=== PATIENT | male | born 1960 | race African-American/Black ===

== ENCOUNTER 2019-07-14 13:14 | Inpatient (IN) | payer MEDICAID ==
[~2019-07-14] VITALS: Ht 170.2 cm; Wt 57.2 kg
[~2019-07-14 13:14] MED LIST: LIDOCAINE HCL/PF 1% 2ML VIAL ONE
[2019-07-14] MEDS ORDERED: MORPHINE SULFATE 4 MG/ML CPJ (NOT FOR IM USE) IV STA (13:45)
[2019-07-14] MEDS ORDERED: SODIUM CHLORIDE 0.9% 1,000 ML IV ONE (13:45)
[2019-07-14] MEDS ORDERED: ONDANSETRON HCL 4MG/2ML INJ IV STA (13:45)
[2019-07-14 15:25] LABS: CLARITY URINE CLEAR (CLEAR); COLOR URINE YELLOW (YELLOW); KETONES URINE 2+ (NEGATIVE); LEUKOCYTE ESTERASE URINE NEGATIVE (NEGATIVE); NITRITE URINE NEGATIVE (NEGATIVE); OCCULT BLOOD URINE 1+ (NEGATIVE); PROTEIN URINE TRACE (NEGATIVE); SPECIFIC GRAVITY URINE 1.029 (1.005-1.030); UROBILINOGEN URINE 0.2 E.U./dL (0.2-1.0)
[2019-07-14 15:26] LABS: BASOPHILS % 0.8 % (0.0-2.0); EOSINOPHILS % 0.8 % (0.0-5.0); HEMATOCRIT. 36.9 % (42.0-52.0); HEMOGLOBIN. 12.7 g/dL (14.0-18.0); LYMPHOCYTES % 24.3 % (20.0-50.0); MEAN CORPUSCULAR HEMOGLOBIN 30.4 pg (28.0-32.0); MEAN CORPUSCULAR VOLUME 88.6 fL (80.0-94.0); MONOCYTES % 5.2 % (2.0-8.0); NEUTROPHILS % 68.9 % (40.0-76.0); PLATELET 159 x1000/uL (130-400); RED BLOOD CELL COUNT 4.16 mill/uL (4.7-6.1); RED CELL DISTRIBUTION WIDTH 13.1 % (11.6-14.6)
[2019-07-14 15:32] LABS: CHLORIDE 94 mEq/L (98-107); INR 0.9; PROTHROMBIN TIME 9.8 sec (9.6-11.0)
[2019-07-14 15:42] LABS: BETA HYDROXYBUTYRATE 3.4 mMol/L (0.0-0.3)
[2019-07-14] MEDS ORDERED: INSULIN REGULAR (HUMULIN R) UD 100 UNITS/ML SYR IV ONE (16:00)
[2019-07-14 16:20] LABS: BG BASE EXCESS -3.3 mmol/L (-2.0-2.0); BG CARBOXYHEMOGLOBIN 0.2 % (0.5-1.5); BG DEOXYHEMOGLOBIN 3.1 % (0.0-5.0); BG FRACTION INSPIRED OXYGEN 21; BG HCO3 ACT 21.5 mmol/L (22.0-26.0); BG METHEMOGLOBIN 0.2 % (0.0-1.5); BG OXYGEN SATURATION 96.9 % (92.0-98.5); BG OXYHEMOGLOBIN 96.5 % (94.0-97.0); BG PCO2 37.6 mmHg (35.0-45.0); BG PH 7.375 (7.350-7.450); BG PO2 95.3 mmHg (75.0-100.0); BG SAMPLE SITE RIGHT RADIAL; BG TOTAL HEMOGLOBIN 12.2 g/dL (12.0-18.0); BG VENT MODE ROOM AIR
[2019-07-14] MEDS ORDERED: INSULIN REGULAR (HUMULIN R) 300UNITS/3ML IV ONE (16:30)
[2019-07-14] MEDS: MORPHINE SULFATE 2 MG/ML CPJ (NOT FOR IM USE) IV PRN (19:49)
[2019-07-14] MEDS ORDERED: BLOOD SUGAR DIAGNOSTIC STRIP TEST SCH (21:00)
[2019-07-14] MEDS ORDERED: DEXTROSE 50% WATER 50ML SYRINGE IV PRN ×2 (21:30→22:15)
[2019-07-14 22:00] VITALS: BP 131/73
[2019-07-14] MEDS: INSULIN LISPRO 100 UNITS/ML SUBCUT SCH (22:15)
[2019-07-14] MEDS: BLOOD SUGAR DIAGNOSTIC STRIP TEST SCH (22:49)
[2019-07-14] MEDS: PHENYTOIN SODIUM EXTENDED 100MG CAPSULE PO SCH (22:49)
[2019-07-14] MEDS: ATORVASTATIN CALCIUM 40MG TABLET PO SCH (22:49)
[2019-07-15] VITALS (16 sets, daily range): BP systolic 94–136; BP diastolic 48–110
[2019-07-15] MEDS: MORPHINE SULFATE 2 MG/ML CPJ (NOT FOR IM USE) IV PRN ×5 (00:45→20:21)
[2019-07-15] MEDS: NITROGLYCERIN OINT 1GM/INCH UDPKT TD SCH ×3 (06:03→21:35)
[2019-07-15] MEDS: BLOOD SUGAR DIAGNOSTIC STRIP TEST SCH ×4 (07:30→20:23)
[2019-07-15] MEDS ORDERED: BLOOD SUGAR DIAGNOSTIC STRIP TEST SCH (07:30)
[2019-07-15] MEDS ORDERED: INSULIN LISPRO 100 UNITS/ML SUBCUT SCH (08:00)
[2019-07-15] MEDS: METOPROLOL TARTRATE 50MG TABLET PO SCH ×2 (08:38→20:35)
[2019-07-15] MEDS: PHENOBARBITAL 30 MG TABLET PO SCH ×2 (08:39→17:12)
[2019-07-15] MEDS: INSULIN LISPRO 100 UNITS/ML SUBCUT SCH ×4 (08:46→20:23)
[2019-07-15] MEDS ORDERED: ASPIRIN 325MG TABLET PO SCH (09:00)
[2019-07-15] MEDS: DOCUSATE SODIUM 250MG CAPSULE PO SCH (09:15)
[2019-07-15] MEDS: TAMSULOSIN HCL 0.4MG SR CAPSULE PO SCH (10:54)
[2019-07-15] MEDS: INSULIN GLARGINE UD 100 UNITS/ML SYR SUBCUT SCH ×2 (10:55→21:28)
[2019-07-15 11:56] LABS: *BARBITURATES SCREEN URINE NEGATIVE (NEGATIVE); CANNABINOID URINE SCREEN NEGATIVE (NEGATIVE); OPIATES URINE SCREEN PRESUMTIVE POSITIVE (NEGATIVE); PHENCYCLIDINE URINE SCREEN NEGATIVE (NEGATIVE)
[2019-07-15 11:57] LABS: *AMPHETAMINES SCREEN URINE NEGATIVE (NEGATIVE); *BENZODIAZEPINES SCREEN URINE NEGATIVE (NEGATIVE); *COCAINE SCREEN URINE PRESUMTIVE POSITIVE (NEGATIVE); METHADONE URINE SCREEN NEGATIVE (NEGATIVE)
[2019-07-15] MEDS: HYDROCODONE/ACETAMINOPHEN 10/325MG TABLET PO PRN ×2 (15:24→20:22)
[2019-07-15 16:08] LABS: CHLORIDE 102 mEq/L (98-107)
[2019-07-15 16:16] LABS: LDL CHOLESTEROL 69 mg/dL (5-100)
[2019-07-15 16:18] LABS: HDL CHOLESTEROL 53 mg/dL (40-59)
[2019-07-15] MEDS: PHENYTOIN SODIUM EXTENDED 100MG CAPSULE PO SCH (20:22)
[2019-07-15] MEDS: ATORVASTATIN CALCIUM 40MG TABLET PO SCH (20:31)
[2019-07-16] VITALS (12 sets, daily range): BP systolic 84–144; BP diastolic 28–88
[2019-07-16] MEDS: HYDROCODONE/ACETAMINOPHEN 10/325MG TABLET PO PRN ×6 (00:37→22:31)
[2019-07-16] MEDS: MORPHINE SULFATE 2 MG/ML CPJ (NOT FOR IM USE) IV PRN ×3 (00:38→08:32)
[2019-07-16] MEDS: DOCUSATE SODIUM 250MG CAPSULE PO SCH ×2 (00:41→08:28)
[2019-07-16] MEDS: BLOOD SUGAR DIAGNOSTIC STRIP TEST SCH ×4 (08:18→20:57)
[2019-07-16] MEDS: PHENOBARBITAL 30 MG TABLET PO SCH ×2 (08:28→17:43)
[2019-07-16] MEDS: TAMSULOSIN HCL 0.4MG SR CAPSULE PO SCH (08:29)
[2019-07-16] MEDS: CLOPIDOGREL 75MG TABLET PO SCH (08:29)
[2019-07-16] MEDS: METOPROLOL TARTRATE 50MG TABLET PO SCH ×2 (08:30→20:58)
[2019-07-16] MEDS: ASPIRIN 81MG TABLET PO SCH (08:30)
[2019-07-16] MEDS: INSULIN LISPRO 100 UNITS/ML SUBCUT SCH ×4 (08:31→21:00)
[2019-07-16] MEDS: INSULIN GLARGINE UD 100 UNITS/ML SYR SUBCUT SCH ×2 (10:52→21:00)
[2019-07-16] MEDS: NITROGLYCERIN OINT 1GM/INCH UDPKT TD SCH ×2 (14:00→20:57)
[2019-07-16] MEDS: PHENYTOIN SODIUM EXTENDED 100MG CAPSULE PO SCH (20:56)
[2019-07-16] MEDS: ATORVASTATIN CALCIUM 40MG TABLET PO SCH (20:58)
[2019-07-17] VITALS (13 sets, daily range): BP systolic 90–127; BP diastolic 50–74
[2019-07-17] MEDS: HYDROCODONE/ACETAMINOPHEN 10/325MG TABLET PO PRN ×5 (02:38→20:09)
[2019-07-17] MEDS: BLOOD SUGAR DIAGNOSTIC STRIP TEST SCH ×4 (06:13→20:09)
[2019-07-17] MEDS: NITROGLYCERIN OINT 1GM/INCH UDPKT TD SCH ×3 (06:33→21:44)
[2019-07-17] MEDS: ASPIRIN 81MG TABLET PO SCH (08:32)
[2019-07-17] MEDS: METOPROLOL TARTRATE 50MG TABLET PO SCH ×2 (08:32→20:11)
[2019-07-17] MEDS: DOCUSATE SODIUM 250MG CAPSULE PO SCH (08:32)
[2019-07-17] MEDS: CLOPIDOGREL 75MG TABLET PO SCH (08:32)
[2019-07-17] MEDS: PHENOBARBITAL 30 MG TABLET PO SCH ×2 (08:33→17:27)
[2019-07-17] MEDS: TAMSULOSIN HCL 0.4MG SR CAPSULE PO SCH (08:33)
[2019-07-17] MEDS: INSULIN LISPRO 100 UNITS/ML SUBCUT SCH ×4 (08:34→20:16)
[2019-07-17] MEDS: INSULIN GLARGINE UD 100 UNITS/ML SYR SUBCUT SCH ×3 (10:00→21:44)
[2019-07-17] MEDS: PHENYTOIN SODIUM EXTENDED 100MG CAPSULE PO SCH (20:06)
[2019-07-17] MEDS: ATORVASTATIN CALCIUM 40MG TABLET PO SCH (20:09)
[2019-07-18] MEDS: HYDROCODONE/ACETAMINOPHEN 10/325MG TABLET PO PRN ×4 (01:42→17:46)
[2019-07-18 03:36] VITALS: BP 112/50
[2019-07-18] MEDS: GABAPENTIN 300MG CAPSULE PO SCH ×3 (05:33→21:39)
[2019-07-18] MEDS: INSULIN LISPRO 100 UNITS/ML SUBCUT SCH ×4 (05:34→21:00)
[2019-07-18] MEDS: BLOOD SUGAR DIAGNOSTIC STRIP TEST SCH ×4 (05:34→21:39)
[2019-07-18] MEDS: NITROGLYCERIN OINT 1GM/INCH UDPKT TD SCH ×3 (05:34→21:39)
[2019-07-18 08:00] VITALS: BP 101/54
[2019-07-18] MEDS: TAMSULOSIN HCL 0.4MG SR CAPSULE PO SCH (09:24)
[2019-07-18] MEDS: DOCUSATE SODIUM 250MG CAPSULE PO SCH (09:25)
[2019-07-18] MEDS: ASPIRIN 81MG TABLET PO SCH (09:25)
[2019-07-18] MEDS: PHENOBARBITAL 30 MG TABLET PO SCH ×2 (09:25→21:38)
[2019-07-18] MEDS: INSULIN GLARGINE UD 100 UNITS/ML SYR SUBCUT SCH ×2 (09:26→21:52)
[2019-07-18] MEDS: METOPROLOL TARTRATE 50MG TABLET PO SCH ×2 (09:33→21:38)
[2019-07-18] MEDS: CLOPIDOGREL 75MG TABLET PO SCH (09:33)
[2019-07-18 12:00] VITALS: BP 89/52
[2019-07-18 12:29] VITALS: BP 105/59
[2019-07-18 16:00] VITALS: BP 124/65
[2019-07-18 20:00] VITALS: BP 112/62
[2019-07-18] MEDS: PHENYTOIN SODIUM EXTENDED 100MG CAPSULE PO SCH (21:38)
[2019-07-18] MEDS: ATORVASTATIN CALCIUM 40MG TABLET PO SCH (21:38)
[2019-07-18] MEDS ORDERED: GABAPENTIN 300MG CAPSULE PO SCH (22:00)
[2019-07-19] VITALS: BP 106/44
[2019-07-19 04:00] VITALS: BP 118/70
[2019-07-19] MEDS: NITROGLYCERIN OINT 1GM/INCH UDPKT TD SCH ×3 (05:33→21:40)
[2019-07-19] MEDS: GABAPENTIN 300MG CAPSULE PO SCH ×3 (05:34→21:39)
[2019-07-19] MEDS: BLOOD SUGAR DIAGNOSTIC STRIP TEST SCH ×4 (06:26→21:39)
[2019-07-19 08:00] VITALS: BP 107/50
[2019-07-19] MEDS: METOPROLOL TARTRATE 50MG TABLET PO SCH ×2 (09:00→21:00)
[2019-07-19] MEDS: PHENOBARBITAL 30 MG TABLET PO SCH ×2 (09:00→17:49)
[2019-07-19] MEDS: DOCUSATE SODIUM 250MG CAPSULE PO SCH (09:03)
[2019-07-19] MEDS: CLOPIDOGREL 75MG TABLET PO SCH (09:03)
[2019-07-19] MEDS: ASPIRIN 81MG TABLET PO SCH (09:03)
[2019-07-19] MEDS: TAMSULOSIN HCL 0.4MG SR CAPSULE PO SCH (09:04)
[2019-07-19] MEDS: INSULIN LISPRO 100 UNITS/ML SUBCUT SCH ×4 (09:08→21:56)
[2019-07-19] MEDS: HYDROCODONE/ACETAMINOPHEN 10/325MG TABLET PO PRN ×2 (09:13→17:51)
[2019-07-19] MEDS: INSULIN GLARGINE UD 100 UNITS/ML SYR SUBCUT SCH ×2 (11:00→23:07)
[2019-07-19 11:02] LABS: CHLORIDE 108 mEq/L (98-107)
[2019-07-19 11:06] LABS: BASOPHILS % 0.3 % (0.0-2.0); EOSINOPHILS % 0.9 % (0.0-5.0); HEMOGLOBIN. 11.3 g/dL (14.0-18.0); LYMPHOCYTES % 24.4 % (20.0-50.0); MEAN CORPUSCULAR HEMOGLOBIN 30.5 pg (28.0-32.0); MEAN CORPUSCULAR VOLUME 88.8 fL (80.0-94.0); MEAN PLATELET VOLUME 9.3 fl (7.4-10.4); MONOCYTES % 6.3 % (2.0-8.0); NEUTROPHILS % 68.1 % (40.0-76.0); PLATELET 156 x1000/uL (130-400); RED BLOOD CELL COUNT 3.71 mill/uL (4.7-6.1); RED CELL DISTRIBUTION WIDTH 13.2 % (11.6-14.6)
[2019-07-19 12:00] VITALS: BP 100/44
[2019-07-19 16:00] VITALS: BP 127/58
[2019-07-19 20:00] VITALS: BP 99/61
[2019-07-19] MEDS: PHENYTOIN SODIUM EXTENDED 100MG CAPSULE PO SCH (21:39)
[2019-07-19] MEDS: ATORVASTATIN CALCIUM 40MG TABLET PO SCH (21:39)
[2019-07-20] VITALS: BP 126/71
[2019-07-20 04:00] VITALS: BP 109/61
[2019-07-20] MEDS: GABAPENTIN 300MG CAPSULE PO SCH ×3 (06:01→21:30)
[2019-07-20] MEDS: NITROGLYCERIN OINT 1GM/INCH UDPKT TD SCH ×3 (06:04→21:09)
[2019-07-20] MEDS: BLOOD SUGAR DIAGNOSTIC STRIP TEST SCH ×4 (06:32→21:09)
[2019-07-20] MEDS: HYDROCODONE/ACETAMINOPHEN 10/325MG TABLET PO PRN ×4 (06:32→20:27)
[2019-07-20] MEDS: METOPROLOL TARTRATE 50MG TABLET PO SCH ×2 (09:00→20:26)
[2019-07-20] MEDS: TAMSULOSIN HCL 0.4MG SR CAPSULE PO SCH (09:02)
[2019-07-20] MEDS: ASPIRIN 81MG TABLET PO SCH (09:03)
[2019-07-20] MEDS: DOCUSATE SODIUM 250MG CAPSULE PO SCH (09:05)
[2019-07-20] MEDS: PHENOBARBITAL 30 MG TABLET PO SCH (09:05)
[2019-07-20] MEDS: CLOPIDOGREL 75MG TABLET PO SCH (09:05)
[2019-07-20] MEDS: INSULIN LISPRO 100 UNITS/ML SUBCUT SCH ×4 (09:07→21:14)
[2019-07-20] MEDS: INSULIN GLARGINE UD 100 UNITS/ML SYR SUBCUT SCH (10:49)
[2019-07-20] MEDS ORDERED: GLUCAGON,HUMAN RECOMBINANT 1MG/VIAL IM SCH (13:20)
[2019-07-20] MEDS ORDERED: DEXTROSE 50% WATER 50ML SYRINGE IV SCH (13:30)
[2019-07-20] MEDS ORDERED: LIDOCAINE HCL 1% 20ML VIAL (Pyxis) INJ ONE (13:38)
[2019-07-20] MEDS ORDERED: SODIUM BICARBONATE 4% (2.4MEQ) 5ML VIAL IV ONE (13:38)
[2019-07-20] MEDS ORDERED: NITROGLYCERIN 0.4MG TABLET SL SL SCH (13:45)
[2019-07-20] MEDS: LEVETIRACETAM 500 MG in SODIUM CHLORIDE 0.9% 100 ML IV SCH ×2 (14:32→20:25)
[2019-07-20] MEDS: ENOXAPARIN 40MG/0.4ML SYR SUBCUT SCH (14:37)
[2019-07-20 20:00] VITALS: BP 115/58
[2019-07-20] MEDS: ATORVASTATIN CALCIUM 40MG TABLET PO SCH (20:26)
[2019-07-20] MEDS: PHENYTOIN SODIUM EXTENDED 100MG CAPSULE PO SCH (20:26)
[2019-07-20] MEDS ORDERED: INSULIN GLARGINE UD 100 UNITS/ML SYR SUBCUT SCH (22:00)
[2019-07-20] MEDS ORDERED: INSULIN LISPRO 100 UNITS/ML SUBCUT NR (22:30)
[2019-07-21] VITALS: BP 103/54
[2019-07-21] MEDS: HYDROCODONE/ACETAMINOPHEN 10/325MG TABLET PO PRN ×4 (00:46→19:55)
[2019-07-21 04:00] VITALS: BP 96/52
[2019-07-21 05:56] VITALS: BP 121/66
[2019-07-21] MEDS: GABAPENTIN 300MG CAPSULE PO SCH ×3 (05:57→21:02)
[2019-07-21] MEDS: NITROGLYCERIN OINT 1GM/INCH UDPKT TD SCH ×2 (05:57→14:54)
[2019-07-21] MEDS: INSULIN LISPRO 100 UNITS/ML SUBCUT SCH ×4 (07:50→21:05)
[2019-07-21] MEDS: BLOOD SUGAR DIAGNOSTIC STRIP TEST SCH ×4 (08:09→20:18)
[2019-07-21] MEDS: METOPROLOL TARTRATE 50MG TABLET PO SCH ×2 (09:00→20:03)
[2019-07-21] MEDS: ASPIRIN 81MG TABLET PO SCH (09:51)
[2019-07-21] MEDS: DOCUSATE SODIUM 250MG CAPSULE PO SCH (09:52)
[2019-07-21] MEDS: TAMSULOSIN HCL 0.4MG SR CAPSULE PO SCH (09:52)
[2019-07-21] MEDS: CLOPIDOGREL 75MG TABLET PO SCH (09:52)
[2019-07-21] MEDS ORDERED: INSULIN GLARGINE UD 100 UNITS/ML SYR SUBCUT SCH (10:00)
[2019-07-21] MEDS: LEVETIRACETAM 500 MG in SODIUM CHLORIDE 0.9% 100 ML IV SCH ×2 (10:03→20:01)
[2019-07-21] MEDS: ENOXAPARIN 40MG/0.4ML SYR SUBCUT SCH (14:53)
[2019-07-21 20:00] VITALS: BP 116/51
[2019-07-21] MEDS: PHENYTOIN SODIUM EXTENDED 100MG CAPSULE PO SCH (20:02)
[2019-07-21] MEDS: ATORVASTATIN CALCIUM 40MG TABLET PO SCH (20:03)
[2019-07-21] MEDS: QUETIAPINE FUMARATE 50MG TABLET PO SCH (21:02)
[2019-07-22] VITALS: BP 112/59
[2019-07-22] MEDS: HYDROCODONE/ACETAMINOPHEN 10/325MG TABLET PO PRN ×4 (02:02→17:40)
[2019-07-22 04:00] VITALS: BP 98/51
[2019-07-22] MEDS: GABAPENTIN 300MG CAPSULE PO SCH ×3 (05:53→21:30)
[2019-07-22] MEDS: NITROGLYCERIN OINT 1GM/INCH UDPKT TD SCH ×3 (05:55→21:30)
[2019-07-22] MEDS: BLOOD SUGAR DIAGNOSTIC STRIP TEST SCH ×4 (06:22→20:25)
[2019-07-22] MEDS: INSULIN LISPRO 100 UNITS/ML SUBCUT SCH ×4 (07:50→20:41)
[2019-07-22 08:00] VITALS: BP 123/70
[2019-07-22] MEDS: DOCUSATE SODIUM 250MG CAPSULE PO SCH (08:58)
[2019-07-22] MEDS: LEVETIRACETAM 500 MG in SODIUM CHLORIDE 0.9% 100 ML IV SCH ×2 (08:58→20:12)
[2019-07-22] MEDS: CLOPIDOGREL 75MG TABLET PO SCH (08:58)
[2019-07-22] MEDS: ASPIRIN 81MG TABLET PO SCH (08:59)
[2019-07-22] MEDS: TAMSULOSIN HCL 0.4MG SR CAPSULE PO SCH (08:59)
[2019-07-22] MEDS: QUETIAPINE FUMARATE 50MG TABLET PO SCH ×2 (09:00→20:14)
[2019-07-22] MEDS: METOPROLOL TARTRATE 50MG TABLET PO SCH ×2 (09:00→20:17)
[2019-07-22 12:00] VITALS: BP 105/53
[2019-07-22] MEDS: ENOXAPARIN 40MG/0.4ML SYR SUBCUT SCH (13:26)
[2019-07-22 16:00] VITALS: BP 102/55
[2019-07-22 20:00] VITALS: BP 101/47
[2019-07-22] MEDS: PHENYTOIN SODIUM EXTENDED 100MG CAPSULE PO SCH (20:13)
[2019-07-22] MEDS: ATORVASTATIN CALCIUM 40MG TABLET PO SCH (20:15)
[2019-07-23] VITALS: BP 100/59
[2019-07-23] MEDS: HYDROCODONE/ACETAMINOPHEN 10/325MG TABLET PO PRN ×3 (00:54→20:36)
[2019-07-23 04:00] VITALS: BP 137/87
[2019-07-23] MEDS: NITROGLYCERIN OINT 1GM/INCH UDPKT TD SCH ×3 (05:58→20:09)
[2019-07-23] MEDS: GABAPENTIN 300MG CAPSULE PO SCH ×3 (05:59→20:10)
[2019-07-23] MEDS: BLOOD SUGAR DIAGNOSTIC STRIP TEST SCH ×4 (06:33→20:21)
[2019-07-23 08:00] VITALS: BP 122/67
[2019-07-23] MEDS: DOCUSATE SODIUM 250MG CAPSULE PO SCH (08:56)
[2019-07-23] MEDS: CLOPIDOGREL 75MG TABLET PO SCH (08:57)
[2019-07-23] MEDS: METOPROLOL TARTRATE 50MG TABLET PO SCH ×2 (08:57→20:11)
[2019-07-23] MEDS: ASPIRIN 81MG TABLET PO SCH (08:58)
[2019-07-23] MEDS: TAMSULOSIN HCL 0.4MG SR CAPSULE PO SCH (08:58)
[2019-07-23] MEDS: QUETIAPINE FUMARATE 50MG TABLET PO SCH ×2 (08:59→20:20)
[2019-07-23] MEDS: LEVETIRACETAM 500 MG in SODIUM CHLORIDE 0.9% 100 ML IV SCH (08:59)
[2019-07-23] MEDS: INSULIN LISPRO 100 UNITS/ML SUBCUT SCH ×4 (09:22→20:05)
[2019-07-23 12:00] VITALS: BP 89/52
[2019-07-23] MEDS: ENOXAPARIN 40MG/0.4ML SYR SUBCUT SCH (13:51)
[2019-07-23 19:45] VITALS: BP 169/76
[2019-07-23] MEDS: LEVETIRACETAM 500MG PREMIX 100 ML IV SCH (20:09)
[2019-07-23] MEDS: PHENYTOIN SODIUM EXTENDED 100MG CAPSULE PO SCH (20:09)
[2019-07-23] MEDS: ATORVASTATIN CALCIUM 40MG TABLET PO SCH (20:11)
[2019-07-24] VITALS: BP 113/54
[2019-07-24] MEDS: HYDROCODONE/ACETAMINOPHEN 10/325MG TABLET PO PRN ×2 (00:50→12:03)
[2019-07-24 04:00] VITALS: BP 141/84
[2019-07-24] MEDS: NITROGLYCERIN OINT 1GM/INCH UDPKT TD SCH ×2 (06:36→14:00)
[2019-07-24] MEDS: GABAPENTIN 300MG CAPSULE PO SCH ×2 (06:36→14:00)
[2019-07-24] MEDS: BLOOD SUGAR DIAGNOSTIC STRIP TEST SCH ×2 (06:52→12:08)
[2019-07-24] MEDS: INSULIN LISPRO 100 UNITS/ML SUBCUT SCH ×2 (06:52→12:12)
[2019-07-24 08:00] VITALS: BP 123/77
[2019-07-24] MEDS: LEVETIRACETAM 500MG PREMIX 100 ML IV SCH (09:26)
[2019-07-24 12:00] VITALS: BP 162/72
[2019-07-24] MEDS: DOCUSATE SODIUM 250MG CAPSULE PO SCH (12:01)
[2019-07-24] MEDS: ASPIRIN 81MG TABLET PO SCH (12:01)
[2019-07-24] MEDS: QUETIAPINE FUMARATE 50MG TABLET PO SCH (12:01)
[2019-07-24] MEDS: TAMSULOSIN HCL 0.4MG SR CAPSULE PO SCH (12:02)
[2019-07-24] MEDS: CLOPIDOGREL 75MG TABLET PO SCH (12:03)
[2019-07-24] MEDS: METOPROLOL TARTRATE 50MG TABLET PO SCH (12:03)
[2019-07-24] MEDS: ENOXAPARIN 40MG/0.4ML SYR SUBCUT SCH (14:00)
[2019-07-24 14:01] VITALS: BP 145/56
== END 2019-07-24 15:03 | disposition home or self-care (01) | DRG 198 ==
LOC: ER 13:38 → 5EST 16:44 → ENRESERV 19:46 → 6EST 07-18 09:55
PROVIDERS: ADMIT Internal Medicine; ATTEND Internal Medicine
PROC: 02H633Z Insertion of Infusion Device into Right Atrium, Percutaneous Approach (ICD-10-PCS; principal; 2019-07-20)
DX: I25.10 Atherosclerotic heart disease of native coronary artery without angina pectoris (principal); E11.22 Type 2 diabetes mellitus with diabetic chronic kidney disease; E87.8 Other disorders of electrolyte and fluid balance, not elsewhere classified; E87.1 Hypo-osmolality and hyponatremia; K86.1 Other chronic pancreatitis; I13.0 Hypertensive heart and chronic kidney disease with heart failure and stage 1 through stage 4 chronic kidney disease, or unspecified chronic kidney disease; I50.32 Chronic diastolic (congestive) heart failure; M94.0 Chondrocostal junction syndrome [Tietze]; D64.9 Anemia, unspecified; E78.5 Hyperlipidemia, unspecified; G40.909 Epilepsy, unspecified, not intractable, without status epilepticus; K76.0 Fatty (change of) liver, not elsewhere classified; G89.4 Chronic pain syndrome; F31.9 Bipolar disorder, unspecified; F20.9 Schizophrenia, unspecified; N18.9 Chronic kidney disease, unspecified; Z79.899 Other long term (current) drug therapy; Z71.51 Drug abuse counseling and surveillance of drug abuser; Z76.5 Malingerer [conscious simulation]
CPT/HCPCS: 36415; 36600; 71045; 74176; 76937; 80048; 80053; 80061; 80185; 80305; 81003; 82010; 82375; 82805; 82962; 83036; 83880; 84484; 85025; 85379; 93005; 93306; 93970; 96374; 97162; 97530; 99285; C1725; J1650; J1815; J1953; J2270; J2405; J3490; J7030; J7050